=== PATIENT | female | born 1995 | race Caucasian/White ===

== ENCOUNTER 2017-08-26 16:35 | Emergency (ER) | payer MEDICAID ==
--- NOTE | 2017-08-26 19:12 | Emergency Department Report ---
ED Female HPI - General Chief complaint: Vaginal Bleeding Stated complaint: BLOOD CLOTTING 6WKS Time Seen by Provider: 08/26/17 19:11 Source: patient, family Mode of arrival: Ambulatory Limitations: No Limitations - History of Present Illness Initial comments: Patient reports that she is 6 weeks and she is having vaginal bleeding with clots. She says she went to [facility] yesterday and they did ultrasound and some blood work and told her that the baby is fine. Patient said that she hasn't started her care as yet she is an appointment with [facility] for visit and for LEAN MANUFACTURING COORDINATOR. She is not taking vitamin. She said they did STD testing at the hospital. Denies any nausea or vomiting. Denies any vaginal discharge. Denies any urinary symptoms or fever or chills. Denies any back pain. Pain is 0/10 MD Complaint: vaginal bleeding Onset/Timin -: days(s) Severity scale (0 -10): 0 Are you Now?: Yes Last Menstrual Period: 08/13/17 EDC: 05/20/18 Associated Symptoms: vaginal bleeding. denies: vaginal discharge, abdominal pain, nausea/vomiting, fever/chills, headaches, loss of appetite, dysuria, hematuria, rash, shortness of breath, syncope, weakness - Related Data Sexually active: Yes : 2 Para: 0 ( 4 months ago) Home Medications Medication Instructions Recorded Confirmed Last Taken Penicillin Vk 500 mg PO TID 06/20/14 06/20/14 1 Day Ago ~06/19/14 Allergies Allergy/AdvReac Type Severity Reaction Status Date / Time No Known Allergies Allergy Verified 06/20/14 22:31 ED Review of Systems ROS: Stated complaint: BLOOD CLOTTING 6WKS Other details as noted in HPI Constitutional: denies: chills, fever Eyes: denies: eye pain, eye discharge ENT: denies: throat pain, congestion Respiratory: denies: cough, orthopnea, shortness of breath, SOB with exertion, SOB at rest, stridor, wheezing Cardiovascular: denies: chest pain, palpitations, dyspnea on exertion, edema, syncope, paroxysmal nocturnal dyspnea Gastrointestinal: denies: abdominal pain, nausea, vomiting, diarrhea, constipation, hematemesis, melena, hematochezia Genitourinary: other (vaginal bleeding). denies: urgency, dysuria, discharge Musculoskeletal: denies: back pain, joint swelling, arthralgia Skin: denies: rash, lesions Neurological: denies: headache, weakness, numbness, paresthesias, confusion, abnormal gait, vertigo ED Past Medical Hx - Past Medical History Previous Medical History?: No - Surgical History Past Surgical History?: No Additional Surgical History: ORAL SURGERY 06/12/14 - Family History Family history: hypertension - Social History Smoking Status: Never Smoker Substance Use Type: Alcohol - Medications Home Medications: Home Medications Medication Instructions Recorded Confirmed Last Taken Type Penicillin Vk 500 mg PO TID 06/20/14 06/20/14 1 Day Ago History ~06/19/14 ED Physical Exam - General Limitations: No Limitations General appearance: alert, in no apparent distress - Head Head exam: Present: atraumatic, normocephalic, normal inspection - Eye Eye exam: Present: normal appearance, PERRL, EOMI Pupils: Present: normal accommodation - ENT ENT exam: Present: normal exam, normal orophraynx, mucous membranes moist - Neck Neck exam: Present: normal inspection, full ROM. Absent: tenderness, lymphadenopathy - Respiratory Respiratory exam: Present: normal lung sounds bilaterally. Absent: respiratory distress, chest wall tenderness - Cardiovascular Cardiovascular Exam: Present: regular rate, normal rhythm, normal heart sounds. Absent: systolic murmur, diastolic murmur - GI/Abdominal GI/Abdominal exam: Present: soft, normal bowel sounds. Absent: distended, tenderness, guarding, rebound, rigid - External exam: Present: bleeding. Absent: normal external exam, lesions, lacerations, ecchymosis Speculum exam: Present: vaginal bleeding. Absent: normal speculum exam, erythema, vaginal discharge, cervical discharge, foreign body, tissue, laceration Bi-manual exam: Present: normal bi-manual exam. Absent: cervical motion tendernes, adnexal tenderness, adnexal mass, uterine enlargement, uterine tenderness - Expanded Exam Expanded Female exam: Absent: vaginal laceration, tissue present in vagina, herpetic lesions, vulvar erythema, vulvar tenderness, foreign body External exam: Present: normal Amniotic fluid: Present: none Speculum exam: Present: cervical OS closed, vaginal bleeding. Absent: vaginal discharge - Extremities Exam Extremities exam: Present: normal inspection, full ROM, normal capillary refill , other (no clubbing, cyanosis or edema. +2 pulses to all extremities and no neurovascular compromise). Absent: tenderness, pedal edema, joint swelling, calf tenderness - Back Exam Back exam: Present: normal inspection, full ROM, other (ambulates without any difficulties). Absent: tenderness, CVA tenderness (R), CVA tenderness (L), muscle spasm, paraspinal tenderness, vertebral tenderness, rash noted - Neurological Exam Neurological exam: Present: alert, oriented X3, normal gait - Psychiatric Psychiatric exam: Present: normal affect, normal mood - Skin Skin exam: Present: warm, dry, intact, normal color. Absent: rash ED Course Vital Signs 08/26/17 08/26/17 17:18 23:26 Temperature 98.2 F Pulse Rate 85 86 Respiratory 20 18 Rate Blood Pressure 113/79 Blood Pressure 116/80 [Right] O2 Sat by Pulse 98 98 Oximetry - Reevaluation(s) Reevaluation #1: 08/26/17 19:38 Patient is stable and awaiting labs and ultrasound to be done. Reevaluation #2: 08/26/17 22:55 I discussed the patient and her ultrasound result and she is very tearful therefore comfort measures given. Family and her mentation. Abdomen is nontender to palpate the patient is not experiencing any abdominal pain. ED Medical Decision Making - Lab Data Result diagrams: 08/26/17 19:35 Labs 08/26/17 08/26/17 08/26/17 19:21 19:35 19:35 WBC 10.3 RBC 4.67 Hgb 13.6 Hct 41.4 MCV 89 MCH 29 MCHC 33 RDW 12.8 L Plt Count 376 Lymph % (Auto) 20.0 [place] % (Auto) 5.5 Eos % (Auto) 1.9 Baso % (Auto) 0.4 Lymph # 2.1 [place] # 0.6 Eos # 0.2 Baso # 0.0 Seg Neutrophils % 72.2 H Seg Neutrophils # 7.4 HCG, Quant 3543 H Urine Color Yellow Urine Turbidity Clear Urine pH 7.0 Ur Specific [place] 1.010 Urine Protein <15 mg/dl Urine Glucose (UA) Neg Urine Ketones Neg Urine Blood Lg Urine Nitrite Neg Urine Bilirubin Neg Urine Urobilinogen < 2.0 Ur Leukocyte Esterase Neg Urine WBC (Auto) 1.0 Urine RBC (Auto) > 182.0 U Epithel Cells (Auto) < 1.0 Blood Type 08/26/17 19:35 WBC RBC Hgb Hct MCV MCH MCHC RDW Plt Count Lymph % (Auto) [place] % (Auto) Eos % (Auto) Baso % (Auto) Lymph # [place] # Eos # Baso # Seg Neutrophils % Seg Neutrophils # HCG, Quant Urine Color Urine Turbidity Urine pH Ur Specific [place] Urine Protein Urine Glucose (UA) Urine Ketones Urine Blood Urine Nitrite Urine Bilirubin Urine Urobilinogen Ur Leukocyte Esterase Urine WBC (Auto) Urine RBC (Auto) U Epithel Cells (Auto) Blood Type B POSITIVE - Radiology Data Radiology results: report reviewed Ultrasound OB abdominal less than 14 weeks intrauterine vaginal OB dated by radiologist and report reviewed by myself and shows no evidence of any intrauterine gestational sac. Right and left ovary are normal. Radiologist notes that an ectopic gestational cannot be excluded on the sonographic finding alone Patient: JASS BRADY MR#: [id number] : 1995 Acct:[id number] Age/Sex: 21 / F ADM Date: 08/26/17 Loc: ED Attending Dr: Ordering Physician: TKIA RAINEY Date of Service: 08/26/17 Procedure(s): US OB <= 14 weeks fetus Accession Number(s): [id number] cc: TIKA RAINEY FINAL REPORT PROCEDURE: US OB lt; = 14 WEEKS FETUS TECHNIQUE: Real-time transabdominal sonography in multiple planes of pelvis was performed with image documentation. This examination was performed without Doppler. Vascular abnormalities, including ovarian torsion, will not be detectable without Doppler evaluation. CPT 46791 HISTORY: vaginal bleeding and COMPARISON: No prior studies are available for comparison. FINDINGS: Uterus is anteverted and measures 8.2 x 4.1 x 5.4 centimeters. Endometrium is 12 millimeters in thickness and demonstrates small cystic changes in the fundal region. An obvious gestational sac is not identified. Right ovary measures 3.2 x 2.0 x 2.3 centimeters with evidence of a cystic lesion measuring 1.3 centimeters. Left ovary measures 2.8 x 1.4 x 1.8 centimeters with normal echotexture. There is no free fluid in the pelvic cavity. IMPRESSION: No evidence of any intrauterine gestational sac Endometrium is 12 millimeters in thickness with mild degree cystic changes in the fundal region. Molar cannot be excluded in the appropriate clinical setting. Clinical correlation and follow-up studies are recommended. Note: Please note that an ectopic gestation cannot be excluded on the sonographic findings alone.. Transcribed By: [facility] Dictated By: MIKEL AGUILAR Electronically Authenticated By: MIKEL AGUILAR Signed Date/Time: 08/26/172138 DD/ 38 TD/TT: 08/26/172138 - Medical Decision Making This is a 21-year-old female here reports that she is 6 weeks and she went to [facility] yesterday and they did an ultrasound and they said the baby was fine. She says she has been bleeding and clots this when she went to the hospital. She states that she was having abdominal pain yesterday but she is not having any pain today. Patient came back to this hospital because she said [facility] to far and she would like to be evaluated. Patient was seen and examined by myself. Laboratory findings are normal with positive quantitative hCG and negative findings for UTI. Ultrasound OB less than 14 weeks to include transient vaginal was dictated by radiologist and report reviewed by myself and it reveals no intrauterine gestational sac. It also reports that ectopic cannot be ruled out based on ultrasound alone. Patient's that having any abdominal pain and she is nontender to palpate. She has scant vaginal bleeding . A/P 1: Spontaneous -patient OB ultrasound less than 14 weeks with transvaginal ultrasound OB shows no IUP gestational sac. Positive hCG quantitative. Patient to return in 72 hours for repeat hCG and will refer her to my LEAN MANUFACTURING COORDINATOR 2: Vaginal bleeding-patient with spontaneous . Pelvic exam shows no products of conception in vaginal vault and minimal blood and vagina but none coming from cervical os. Patient educated on ultrasound report and diagnosis, she was comforted and I told her she needs to return to the emergency room in 72 hours to have repeat ultrasound and hormone checked and she voiced understanding. I also told patient if she has a LEAN MANUFACTURING COORDINATOR that she can also order LEAN MANUFACTURING COORDINATOR but this will fall on the weekend so she can come to the emergency room. She voiced understanding. Patient discharged home in stable condition, vital signs are stable she is afebrile, she is nontoxic in appearance. She was discharged home with her family to return to the emergency room in 72 hours for recheck. - Differential Diagnosis spontaneous , threatened miscarriage, subchorionic bleed Critical care attestation.: If time is entered above; I have spent that time in minutes in the direct care of this critically ill patient, excluding procedure time. ED Disposition Clinical Impression: Spontaneous , Vaginal bleeding during Disposition: TO HOME OR SELFCARE Is pt being admited?: No Does the pt Need Aspirin: No Condition: Stable Instructions: Spontaneous Miscarriage (ED) Additional Instructions: Please return to emergency room in 72 hours for repeat hormone tests and ultrasound.. call MY LEAN MANUFACTURING COORDINATOR tomorrow to schedule an appointment for physical status post spontaneous miscarriage. If you develop increasing abdominal pain, vaginal bleed , fever and/or chills, nausea or vomiting please return to the emergency room ANGEL Please read discharge instruction on spontaneous miscarriage Referrals: CARMEN BILLINGSLEY MD [Primary Care Provider] - 08/27/17 [facility] [Outside] - 08/27/17 [facility] [Provider Group] - 08/27/17 Forms: Accompanied Note, Work/School Release Form(ED)
[2017-08-26 19:41] LABS: Bilirubin,Urine NEG (Negative); Blood,Urine LG (Negative); Color,Urine Yellow (Yellow); Protein,Urine <15 mg/dL mg/dL (Negative); Urobilinogen,Urine < 2.0 mg/dL (<2.0)
[2017-08-26 19:44] LABS: RBC,Urine > 182.0 /HPF (0.0-6.0)
[2017-08-26 19:48] LABS: Basophils % (Auto) 0.4 % (0.0-1.8); Eosinophils # (Auto) 0.2 K/mm3 (0.0-0.4); Eosinophils % (Auto) 1.9 % (0.0-4.3); Hematocrit 41.4 % (30.3-42.9); Hemoglobin 13.6 gm/dl (10.1-14.3); Lymphocytes # (Auto) 2.1 K/mm3 (1.2-5.4); Mean Corpuscular HGB Conc 33 % (30-34); Mean Corpuscular Hemoglobin 29 pg (28-32); Mean Corpuscular Volume 89 fl (79-97); Monocytes # (Auto) 0.6 K/mm3 (0.0-0.8); Monocytes % (Auto) 5.5 % (0.0-7.3); Platelet Count 376 K/mm3 (140-440); Red Blood Count 4.67 M/mm3 (3.65-5.03); Red Cell Distribution Width 12.8 % (13.2-15.2)
--- NOTE | 2017-08-26 21:42 | Ultrasound Report ---
FINAL REPORT PROCEDURE: US OB TRANSVAGINAL TECHNIQUE: Real-time transvaginal sonography in multiple planes of the pelvis was performed with image documentation. This examination was performed without Doppler. Vascular abnormalities, including ovarian torsion, will not be detectable without Doppler evaluation. CPT 60469 HISTORY: vaginal bleeding and COMPARISON: No prior studies are available for comparison. FINDINGS: Uterus is anteverted and measures 8.2 x 4.1 x 5.4 centimeters. Endometrium is 12 millimeters in thickness and demonstrates small cystic changes in the fundal region. An obvious gestational sac is not identified. Right ovary measures 3.2 x 2.0 x 2.3 centimeters with evidence of a cystic lesion measuring 1.3 centimeters. Left ovary measures 2.8 x 1.4 x 1.8 centimeters with normal echotexture. There is no free fluid in the pelvic cavity. IMPRESSION: No evidence of any intrauterine gestational sac Endometrium is 12 millimeters in thickness with mild degree cystic changes in the fundal region. Molar cannot be excluded in the appropriate clinical setting. Clinical correlation and follow-up studies are recommended. Note: Please note that an ectopic gestation cannot be excluded on the sonographic findings alone..
--- NOTE | 2017-08-26 21:43 | Ultrasound Report ---
FINAL REPORT PROCEDURE: US OB < = 14 WEEKS FETUS TECHNIQUE: Real-time transabdominal sonography in multiple planes of pelvis was performed with image documentation. This examination was performed without Doppler. Vascular abnormalities, including ovarian torsion, will not be detectable without Doppler evaluation. CPT 35455 HISTORY: vaginal bleeding and COMPARISON: No prior studies are available for comparison. FINDINGS: Uterus is anteverted and measures 8.2 x 4.1 x 5.4 centimeters. Endometrium is 12 millimeters in thickness and demonstrates small cystic changes in the fundal region. An obvious gestational sac is not identified. Right ovary measures 3.2 x 2.0 x 2.3 centimeters with evidence of a cystic lesion measuring 1.3 centimeters. Left ovary measures 2.8 x 1.4 x 1.8 centimeters with normal echotexture. There is no free fluid in the pelvic cavity. IMPRESSION: No evidence of any intrauterine gestational sac Endometrium is 12 millimeters in thickness with mild degree cystic changes in the fundal region. Molar cannot be excluded in the appropriate clinical setting. Clinical correlation and follow-up studies are recommended. Note: Please note that an ectopic gestation cannot be excluded on the sonographic findings alone..
[2017-08-26 23:26] VITALS: BP 116/80
== END 2017-08-26 23:26 | disposition home or self-care (01) ==
LOC: ED 16:35
DX: O03.9 Complete or unspecified spontaneous abortion without complication (principal); Z3A.01 Less than 8 weeks gestation of pregnancy
CPT/HCPCS: 36415; 76801; 76817; 81001; 84702; 85025; 86850; 86900; 86901; 87086

== ENCOUNTER 2017-09-27 23:00 | Emergency (ER) | payer MEDICAID | END 2017-09-28 00:53 | disposition left against medical advice (07) | LOC: ED 23:00 | DX: R10.9 Unspecified abdominal pain (principal); Z53.21 Procedure and treatment not carried out due to patient leaving prior to being seen by health care provider ==

== ENCOUNTER 2017-10-22 07:56 | Emergency (ER) | payer MEDICAID ==
[2017-10-22] MEDS ORDERED: NACL 0.9% 1000 ML 1,000 ML IV ONE (09:05)
[2017-10-22 09:39] LABS: Basophils % (Auto) 0.2 % (0.0-1.8); Eosinophils # (Auto) 0.3 K/mm3 (0.0-0.4); Eosinophils % (Auto) 2.6 % (0.0-4.3); Hematocrit 38.9 % (30.3-42.9); Lymphocytes # (Auto) 1.7 K/mm3 (1.2-5.4); Mean Corpuscular HGB Conc 34 % (30-34); Mean Corpuscular Hemoglobin 30 pg (28-32); Mean Corpuscular Volume 89 fl (79-97); Monocytes # (Auto) 0.8 K/mm3 (0.0-0.8); Monocytes % (Auto) 7.9 % (0.0-7.3); Platelet Count 401 K/mm3 (140-440); Red Blood Count 4.35 M/mm3 (3.65-5.03); Red Cell Distribution Width 13.4 % (13.2-15.2)
[2017-10-22 09:49] LABS: Alanine Aminotransferase 7 units/L (7-56); Albumin 4.2 g/dL (3.9-5); BUN/Creatinine Ratio 11; Blood Urea Nitrogen 8 mg/dL (7-17); Calcium 9.1 mg/dL (8.4-10.2); Hemolysis Index 4
[2017-10-22 10:16] LABS: Bilirubin,Urine NEG (Negative); Blood,Urine NEG (Negative); Color,Urine Yellow (Yellow); Mucus,Urine 2+ /HPF; Protein,Urine <15 mg/dL mg/dL (Negative); Urobilinogen,Urine < 2.0 mg/dL (<2.0)
[2017-10-22] MEDS ORDERED: ZOFRAN IV ONE (11:02)
[2017-10-22] MEDS ORDERED: TORADOL IV ONE (11:02)
--- NOTE | 2017-10-22 11:06 | Emergency Department Report ---
Blank Doc - Documentation Documentation: Patient presents to the emergency department with right lower quadrant and right flank pain 1 week. Patient describes the pain as sharp in nature and intermittent. Denies anything making her symptoms better or worse. Labs were discussed with patient as well as plan of care which includes IV fluids, a medication, nausea medicine and a CAT scan of abdomen and pelvis. Care will be turned over to the on duty nurse practitioner with me available for consultation
--- NOTE | 2017-10-22 11:21 | Emergency Department Report ---
ED Abdominal Pain HPI - General Chief Complaint: Abdominal Pain Stated Complaint: STOMACH PAIN/RT FLANK PAIN Time Seen by Provider: 10/22/17 10:53 Source: patient Mode of arrival: Ambulatory Limitations: No Limitations - History of Present Illness Initial Comments: Patient presents to the emergency department with right lower quadrant and right flank pain 1 week. Patient describes the pain as sharp in nature and intermittent. Denies anything making her symptoms better or worse. Pain is 8 out of 10 sharp and achy. Denies any fever or chills. No [id number] medication taken for symptoms. MD Complaint: flank pain Onset/Timin -: week(s) Location: R flank Radiation: none Migration to: no migration Severity: severe Severity scale (0 -10): 8 Quality: aching, sharp Consistency: intermittent Improves With: nothing Worsens With: nothing Context: other (unknown) Associated Symptoms: denies: nausea, vomiting, diarrhea, fever, chills, constipation, dysuria, hematemesis, hematochezia, melena, hematuria, anorexia, syncope - Related Data LMP Date: 10/13/17 Home Medications Medication Instructions Recorded Confirmed Last Taken Penicillin Vk 500 mg PO TID 06/20/14 06/20/14 1 Day Ago ~06/19/14 Previous Rx's Medication Instructions Recorded Last Taken Type Naproxen [Naprosyn] 500 mg PO BID PRN #12 tablet 10/22/17 Unknown Rx Nitrofurantoin [place]/M-Cryst 100 mg PO Q12HR 3 Days #6 capsule 10/22/17 Unknown Rx [Macrobid CAP] Ondansetron [Zofran Odt] 4 mg PO Q8H PRN #12 tab.rapdis 10/22/17 Unknown Rx Allergies Allergy/AdvReac Type Severity Reaction Status Date / Time No Known Allergies Allergy Verified 06/20/14 22:31 ED Review of Systems ROS: Stated complaint: STOMACH PAIN/RT FLANK PAIN Other details as noted in HPI Constitutional: denies: chills, fever Eyes: denies: eye discharge ENT: denies: throat pain Respiratory: denies: cough, shortness of breath, SOB with exertion, SOB at rest , stridor, wheezing Cardiovascular: denies: chest pain, palpitations, edema, syncope Gastrointestinal: abdominal pain (right flank pain). denies: nausea, vomiting, diarrhea, constipation, hematemesis, melena, hematochezia Genitourinary: denies: urgency, dysuria, frequency, hematuria, discharge, abnormal menses, dyspareunia Musculoskeletal: denies: back pain, joint swelling, arthralgia Skin: denies: rash, lesions Neurological: denies: headache, weakness ED Past Medical Hx - Past Medical History Previous Medical History?: No - Surgical History Past Surgical History?: No Additional Surgical History: ORAL SURGERY 06/12/14 - Family History Family history: no significant - Social History Smoking Status: Never Smoker Substance Use Type: None - Medications Home Medications: Home Medications Medication Instructions Recorded Confirmed Last Taken Type Penicillin Vk 500 mg PO TID 06/20/14 06/20/14 1 Day Ago History ~06/19/14 Naproxen [Naprosyn] 500 mg PO BID PRN #12 tablet 10/22/17 Unknown Rx Nitrofurantoin [place]/M-Cryst 100 mg PO Q12HR 3 Days #6 capsule 10/22/17 Unknown Rx [Macrobid CAP] Ondansetron [Zofran Odt] 4 mg PO Q8H PRN #12 tab.rapdis 10/22/17 Unknown Rx ED Physical Exam - General Limitations: No Limitations General appearance: alert, in no apparent distress - Head Head exam: Present: atraumatic, normocephalic - Eye Eye exam: Present: normal appearance, PERRL, EOMI. Absent: scleral icterus - ENT ENT exam: Present: normal exam, normal orophraynx, mucous membranes moist - Neck Neck exam: Present: normal inspection, full ROM. Absent: tenderness - Respiratory Respiratory exam: Present: normal lung sounds bilaterally. Absent: respiratory distress - Cardiovascular Cardiovascular Exam: Present: regular rate, normal rhythm, normal heart sounds - GI/Abdominal GI/Abdominal exam: Present: soft, normal bowel sounds. Absent: distended, tenderness, guarding, rebound, rigid, mass - Extremities Exam Extremities exam: Present: normal inspection, full ROM, normal capillary refill , other (No cce. + 2 pulses in all extremities, no neurovascular compromise). Absent: tenderness, pedal edema, joint swelling, calf tenderness - Back Exam Back exam: Present: normal inspection, full ROM, other (ambulates without any difficulties). Absent: CVA tenderness (R), CVA tenderness (L), muscle spasm, vertebral tenderness - Neurological Exam Neurological exam: Present: alert, oriented X3, normal gait - Psychiatric Psychiatric exam: Present: normal affect, normal mood - Skin Skin exam: Present: warm, dry, intact, normal color. Absent: rash ED Course Vital Signs 10/22/17 10/22/17 09:01 11:25 Temperature 98.1 F Pulse Rate 85 Respiratory 18 22 Rate Blood Pressure 133/80 O2 Sat by Pulse 18 L Oximetry Vital Signs 10/22/17 10/22/17 10/22/17 09:01 11:25 14:48 Temperature 98.1 F Pulse Rate 85 Respiratory 18 22 Rate Blood Pressure 133/80 O2 Sat by Pulse 18 L 99 Oximetry - Reevaluation(s) Reevaluation #1: 10/22/17 14:36 Reevaluation of abdomen and patient was given normal saline 1 L, Zofran 4 mg IV and Toradol 30 mg IV which relieved her pain. ED Medical Decision Making - Lab Data Result diagrams: 10/22/17 09:13 10/22/17 09:13 Lab Results 10/22/17 10/22/17 10/22/17 Range/Units 09:13 09:13 09:24 WBC 10.6 (4.5-11.0) K/mm3 RBC 4.35 (3.65-5.03) M/mm3 Hgb 13.0 (10.1-14.3) gm/dl Hct 38.9 (30.3-42.9) % MCV 89 (79-97) fl MCH 30 (28-32) pg MCHC 34 (30-34) % RDW 13.4 (13.2-15.2) % Plt Count 401 (140-440) K/mm3 Lymph % (Auto) 16.0 (13.4-35.0) % [place] % (Auto) 7.9 H (0.0-7.3) % Eos % (Auto) 2.6 (0.0-4.3) % Baso % (Auto) 0.2 (0.0-1.8) % Lymph # 1.7 (1.2-5.4) K/mm3 [place] # 0.8 (0.0-0.8) K/mm3 Eos # 0.3 (0.0-0.4) K/mm3 Baso # 0.0 (0.0-0.1) K/mm3 Seg Neutrophils % 73.3 H (40.0-70.0) % Seg Neutrophils # 7.7 (1.8-7.7) K/mm3 Sodium 138 (137-145) mmol/L Potassium 4.6 (3.6-5.0) mmol/L Chloride 102.3 (98-107) mmol/L Carbon Dioxide 25 (22-30) mmol/L Anion Gap 15 mmol/L BUN 8 (7-17) mg/dL Creatinine 0.7 (0.7-1.2) mg/dL Estimated GFR > 60 ml/min BUN/Creatinine Ratio 11 % Glucose 84 (65-100) mg/dL Calcium 9.1 (8.4-10.2) mg/dL Total Bilirubin 0.20 (0.1-1.2) mg/dL AST 13 (5-40) units/L ALT 7 (7-56) units/L Alkaline Phosphatase 73 (35-129) units/L Total Protein 7.9 (6.3-8.2) g/dL Albumin 4.2 (3.9-5) g/dL Albumin/Globulin Ratio 1.1 % Urine Color Yellow (Yellow) Urine Turbidity Slightly-cloudy (Clear) Urine pH 5.0 (5.0-7.0) Ur Specific [place] 1.021 (1.003-1.030) Urine Protein <15 mg/dl (Negative) mg/dL Urine Glucose (UA) Neg (Negative) mg/dL Urine Ketones Neg (Negative) mg/dL Urine Blood Neg (Negative) Urine Nitrite Neg (Negative) Urine Bilirubin Neg (Negative) Urine Urobilinogen < 2.0 (<2.0) mg/dL Ur Leukocyte Esterase Tr (Negative) Urine WBC (Auto) 4.0 (0.0-6.0) /HPF Urine RBC (Auto) 3.0 (0.0-6.0) /HPF U Epithel Cells (Auto) 5.0 (0-13.0) /HPF Urine Mucus 2+ /HPF Urine HCG, Qual (Negative) 10/22/17 Range/Units Unknown WBC (4.5-11.0) K/mm3 RBC (3.65-5.03) M/mm3 Hgb (10.1-14.3) gm/dl Hct (30.3-42.9) % MCV (79-97) fl MCH (28-32) pg MCHC (30-34) % RDW (13.2-15.2) % Plt Count (140-440) K/mm3 Lymph % (Auto) (13.4-35.0) % [place] % (Auto) (0.0-7.3) % Eos % (Auto) (0.0-4.3) % Baso % (Auto) (0.0-1.8) % Lymph # (1.2-5.4) K/mm3 [place] # (0.0-0.8) K/mm3 Eos # (0.0-0.4) K/mm3 Baso # (0.0-0.1) K/mm3 Seg Neutrophils % (40.0-70.0) % Seg Neutrophils # (1.8-7.7) K/mm3 Sodium (137-145) mmol/L Potassium (3.6-5.0) mmol/L Chloride (98-107) mmol/L Carbon Dioxide (22-30) mmol/L Anion Gap mmol/L BUN (7-17) mg/dL Creatinine (0.7-1.2) mg/dL Estimated GFR ml/min BUN/Creatinine Ratio % Glucose (65-100) mg/dL Calcium (8.4-10.2) mg/dL Total Bilirubin (0.1-1.2) mg/dL AST (5-40) units/L ALT (7-56) units/L Alkaline Phosphatase (35-129) units/L Total Protein (6.3-8.2) g/dL Albumin (3.9-5) g/dL Albumin/Globulin Ratio % Urine Color (Yellow) Urine Turbidity (Clear) Urine pH (5.0-7.0) Ur Specific [place] (1.003-1.030) Urine Protein (Negative) mg/dL Urine Glucose (UA) (Negative) mg/dL Urine Ketones (Negative) mg/dL Urine Blood (Negative) Urine Nitrite (Negative) Urine Bilirubin (Negative) Urine Urobilinogen (<2.0) mg/dL Ur Leukocyte Esterase (Negative) Urine WBC (Auto) (0.0-6.0) /HPF Urine RBC (Auto) (0.0-6.0) /HPF U Epithel Cells (Auto) (0-13.0) /HPF Urine Mucus /HPF Urine HCG, Qual Negative (Negative) Urine culture sent - Radiology Data Radiology results: report reviewed CT scan of the abdomen and pelvis without contrast dictated by radiologist and report reviewed by myself. See report below Patient: JASS BRADY MR#: [id number] : 1995 Acct:[id number] Age/Sex: 21 / F ADM Date: 10/22/17 Loc: ED Attending Dr: Ordering Physician: VELVET MANN MD Date of Service: 10/22/17 Procedure(s): CT abdomen pelvis wo con Accession Number(s): [id number] cc: VELVET MANN MD CT ABDOMEN PELVIS WITHOUT CONTRAST: HISTORY: Right lower quadrant pain, right flank pain. COMPARISON: none. TECHNIQUE: Helical CT in 1.25mm intervals without IV contrast. Sagittal and coronal reconstructions. FINDINGS: Lung bases: Normal. Liver: Normal. Biliary system: Normal. Pancreas: Normal. Spleen: Normal. Kidneys/ureters/bladder: Normal. Adrenal glands: Normal. Aorta: Normal. Intestines: Normal. Appendix: Normal. Pelvic viscera: Normal. Ascites: None. Adenopathy: None. Musculoskeletal: Normal. IMPRESSION: Unremarkable CT scan of the abdomen and pelvis without contrast. Transcribed By: TTR Dictated By: WEN ALMONTE JR, MD Electronically Authenticated By: WEN ALMONTE JR, MD Signed Date/Time: 10/22/17 1255 DD/ 1255 TD/TT: 10/22/17 1255 - Medical Decision Making This is a 21-year-old female here reports right flank pain 1 week. Denies any urinary symptoms. She did be evaluated She was seen and evaluated by myself and her physical finding is normal without any abdominal tenderness, no CVA tenderness. She does not have any urinary symptoms. CT scan of the abdomen and pelvis was dictated by radiologist and report reviewed by myself and normal findings. test is negative. CBC , CMP and urinalysis is stable except patient have trace leukocyte Estrace were cloudy urine coupled with flank pain I will treat her with 3 days worth of Macrobid even though she does not have any urinary symptoms. Patient received 1 L of normal saline in emergency room, Zofran 4 mg IV and Toradol 30 mg IV and her symptoms has been resolved. I discussed CT scan results and labs with patient and she voiced understanding. She she voiced understanding offdischarge instruction and treatment plan and she is discharged home with prescription for Macrobid, naproxen and Zofran and to follow up with her primary care physician and 3 days and if symptoms worsens to return to the emergency room [facility]. Her vital signs are stable she is afebrile and nontoxic in appearance and her pain has resolved. Critical care attestation.: If time is entered above; I have spent that time in minutes in the direct care of this critically ill patient, excluding procedure time. ED Disposition Clinical Impression: Right flank pain UTI (urinary tract infection) Qualifiers: Urinary tract infection type: acute cystitis Hematuria presence: without hematuria Qualified Code(s): N30.00 - Acute cystitis without hematuria Disposition: TO HOME OR SELFCARE Is pt being admited?: No Does the pt Need Aspirin: No Condition: Stable Instructions: Abdominal Pain (ED), Urinary Tract Infection in Women (ED), Flank Pain (ED) Additional Instructions: Please follow-up with your primary care physician in 3 days and if he did not have one he can follow-up with outside [facility] Return to ED if his symptoms worsens Prescriptions: Naproxen [Naprosyn] 500 mg PO BID PRN #12 tablet PRN Reason: pain Nitrofurantoin [place]/M-Cryst [Macrobid CAP] 100 mg PO Q12HR 3 Days #6 capsule Ondansetron [Zofran Odt] 4 mg PO Q8H PRN #12 tab.rapdis PRN Reason: nausea and vomiting Referrals: Sarah BILLINGSLEY [Other] - 10/25/17 Forms: Work/School Release Form(ED)
[2017-10-22 11:57] LABS: HCG Qualitative,Urine Negative (Negative)
--- NOTE | 2017-10-22 13:02 | Cat Scan Report ---
CT ABDOMEN PELVIS WITHOUT CONTRAST: HISTORY: Right lower quadrant pain, right flank pain. COMPARISON: none. TECHNIQUE: Helical CT in 1.25mm intervals without IV contrast. Sagittal and coronal reconstructions. FINDINGS: Lung bases: Normal. Liver: Normal. Biliary system: Normal. Pancreas: Normal. Spleen: Normal. Kidneys/ureters/bladder: Normal. Adrenal glands: Normal. Aorta: Normal. Intestines: Normal. Appendix: Normal. Pelvic viscera: Normal. Ascites: None. Adenopathy: None. Musculoskeletal: Normal. IMPRESSION: Unremarkable CT scan of the abdomen and pelvis without contrast.
[2017-10-22] MEDS ORDERED: ANCEF IM ONE (13:23)
[2017-10-22 15:27] VITALS: BP 123/78
== END 2017-10-22 14:50 | disposition home or self-care (01) ==
LOC: ED 07:56
DX: N30.00 Acute cystitis without hematuria (principal)
CPT/HCPCS: 36415; 74176; 80053; 81001; 81025; 85025; 87086; 96374; 96375; 99284; J1885; J2405; J7030